=== PATIENT | female | born 1980 | race American Indian/Alaskan Native ===

== ENCOUNTER 2016-08-30 15:48 | Emergency (ER) | payer MEDICAID ==
[2016-08-30] MEDS ORDERED: TORADOL IM ONE (20:37)
--- NOTE | 2016-08-30 20:42 | Emergency Department Report ---
HPI - General Chief Complaint: Dental/Oral Time Seen by Provider: 08/30/16 20:20 - HPI HPI: 35-year-old female presents today with right lower toothache 1 week. Patient states that for the past he states she's also had right-sided facial pressure. Describes her pain as 6 out of 10 constant, throbbing pain. Positive for history of similar symptoms and cavities. She tried Tylenol Extra Strength with some relief. Denies fever, chills, nausea, vomiting, chest pain, shortness of breath, abdominal pain. ED Past Medical Hx - Past Medical History Previous Medical History?: No - Surgical History Additional Surgical History: - Social History Smoking Status: Never Smoker Substance Use Type: Alcohol - Medications Home Medications: Home Medications Medication Instructions Recorded Confirmed Last Taken Type Naproxen [Naprosyn] 500 mg PO BID #20 tablet 08/30/16 Unknown Rx Penicillin Vk [Veetids TAB] 500 mg PO QID #56 tablet 08/30/16 Unknown Rx ED Review of Systems ROS: Stated complaint: TOOTHACHE/FEVER Other details as noted in HPI Constitutional: denies: chills, fever, malaise Eyes: denies: eye pain ENT: dental pain. denies: ear pain, throat pain, congestion Respiratory: denies: cough, shortness of breath, wheezing Cardiovascular: denies: chest pain, palpitations Endocrine: no symptoms reported Gastrointestinal: denies: abdominal pain, nausea, vomiting Neurological: denies: headache, weakness Physical Exam - Physical Exam Vital Signs: Vital Signs 08/30/16 17:24 Temperature 98.4 F Pulse Rate 84 Respiratory 18 Rate Blood Pressure 157/98 O2 Sat by Pulse 98 Oximetry Physical Exam: GENERAL: The patient is well-developed and well-nourished. Patient is in NAD. HEAD: Normocephalic. Atraumatic. EYES: PERRL. EARS: External auditory canals and tympanic membranes clear; hearing grossly intact. NOSE: Normal nasal mucosa with no nasal discharge. THROAT: No erythema, swelling or exudates. DENTAL: Tenderness to palpation to #31 and 32. Positive for dental caries. No abscess noted. No drainage or bleeding noted. NECK: Supple, nontender, without lymphadenopathy. CHEST/LUNGS: Clear to auscultation throughout. HEART/CARDIOVASCULAR: Regular rate and rhythm. ABDOMEN: Abdomen is soft, nontender. No guarding or rebound tenderness. EXTREMITIES: Peripheral pulses intact. Capillary refill less than 2 seconds. NEURO: Alert and oriented x 3. Normal gait. ED Course Vital Signs 08/30/16 17:24 Temperature 98.4 F Pulse Rate 84 Respiratory 18 Rate Blood Pressure 157/98 O2 Sat by Pulse 98 Oximetry ED Medical Decision Making - Lab Data Vital Signs 08/30/16 17:24 Temperature 98.4 F Pulse Rate 84 Respiratory 18 Rate Blood Pressure 157/98 O2 Sat by Pulse 98 Oximetry - Medical Decision Making 35-year-old female presents today with right lower toothache 1 week. Patient will be given a referral for dentist. Patient is in no acute distress at this time. She will be discharged home and is encouraged to follow up with a primary care provider. She will be sent home on penicillin VK and naproxen and is encouraged to return to the emergency room for any worsening symptoms. Critical care attestation.: If time is entered above; I have spent that time in minutes in the direct care of this critically ill patient, excluding procedure time. ED Disposition Clinical Impression: Toothache Disposition: DISCHARGED TO HOME OR SELFCARE Is pt being admited?: No Does the pt Need Aspirin: No Condition: Stable Instructions: Dental Caries (ED), Toothache (ED) Additional Instructions: Follow-up with dentist. Return to the emergency department if symptoms worsen. Prescriptions: Naproxen [Naprosyn] 500 mg PO BID #20 tablet Penicillin Vk [Veetids TAB] 500 mg PO QID #56 tablet Referrals: PRIMARY CARE, [Primary Care Provider] - 3-5 Days [facility] [Outside] - 3-5 Days [facility] [Outside] - 3-5 Days Forms: Work/School Release Form(ED), Accompanied Note Time of Disposition: 20:41
[2016-08-30 20:49] VITALS: BP 160/88
== END 2016-08-30 20:55 | disposition home or self-care (01) ==
LOC: ED 15:48
DX: K08.89 Other specified disorders of teeth and supporting structures (principal)
CPT/HCPCS: 96372; 99282; J1885

== ENCOUNTER 2017-11-01 11:49 | Emergency (ER) | payer MEDICAID, OTHER ==
[2017-11-01] MEDS ORDERED: MOTRIN PO ONE (12:08)
--- NOTE | 2017-11-01 12:09 | Emergency Department Report ---
ED Lower Extremity HPI - General Chief Complaint: Extremity Injury, Lower Stated Complaint: L KNEE PAIN Time Seen by Provider: 11/01/17 12:07 Source: patient, EMS Mode of arrival: Wheelchair Limitations: No Limitations - History of Present Illness Initial Comments: This is a 37-year-old female nontoxic, well nourished in appearance, no acute signs of distress presents to the ED with c/o of left knee pain x1 day. Patient stated she was walking in the ran and tripped and landed on her left knee. Denies follow-up with a primary care doctor or orthopedic doctor. Patient denies any numbness, tingling, fever, chills, nausea, vomiting, headache or stiff neck. Patient denies new trauma. Patient denies any allergies. Denies PMH. MD Complaint: knee injury -: days(s) (1) Injury: Knee: Left Type of Injury: blunt Place: street/outdoors Severity: mild Severity scale (0 -10): 8 Improves With: immobilization Worsens With: movement, palpation Context: fall Associated Symptoms: able to partially bear weight, ambulatory. denies: snap/ pop sensation, swelling, numbness, tingling, unable to bear weight - Related Data Previous Rx's Medication Instructions Recorded Last Taken Type Naproxen [Naprosyn] 500 mg PO BID #20 tablet 08/30/16 Unknown Rx Penicillin Vk [Veetids TAB] 500 mg PO QID #56 tablet 08/30/16 Unknown Rx Ibuprofen [Motrin] 600 mg PO Q8H PRN #30 tablet 11/01/17 Unknown Rx Allergies Allergy/AdvReac Type Severity Reaction Status Date / Time No Known Allergies Allergy Verified 11/01/17 11:51 ED Review of Systems ROS: Stated complaint: L KNEE PAIN Other details as noted in HPI Constitutional: denies: chills, fever Eyes: denies: eye pain, eye discharge, vision change ENT: denies: ear pain, throat pain Respiratory: denies: cough, shortness of breath, wheezing Cardiovascular: denies: chest pain, palpitations Endocrine: no symptoms reported Gastrointestinal: denies: abdominal pain, nausea, diarrhea Genitourinary: denies: urgency, dysuria, discharge Musculoskeletal: arthralgia. denies: back pain, joint swelling Skin: denies: rash, lesions Neurological: denies: headache, weakness, paresthesias Psychiatric: denies: anxiety, depression Hematological/Lymphatic: denies: easy bleeding, easy bruising ED Past Medical Hx - Past Medical History Previous Medical History?: No - Surgical History Additional Surgical History: - Social History Smoking Status: Never Smoker Substance Use Type: Alcohol - Medications Home Medications: Home Medications Medication Instructions Recorded Confirmed Last Taken Type Naproxen [Naprosyn] 500 mg PO BID #20 tablet 08/30/16 Unknown Rx Penicillin Vk [Veetids TAB] 500 mg PO QID #56 tablet 08/30/16 Unknown Rx Ibuprofen [Motrin] 600 mg PO Q8H PRN #30 tablet 11/01/17 Unknown Rx ED Physical Exam - General Limitations: No Limitations General appearance: alert, in no apparent distress - Head Head exam: Present: atraumatic, normocephalic - Eye Eye exam: Present: normal appearance Pupils: Present: normal accommodation - ENT ENT exam: Present: normal exam, mucous membranes moist - Neck Neck exam: Present: normal inspection, full ROM. Absent: tenderness, meningismus, lymphadenopathy - Respiratory Respiratory exam: Present: normal lung sounds bilaterally. Absent: respiratory distress, wheezes, rales, rhonchi, stridor - Cardiovascular Cardiovascular Exam: Present: regular rate, normal rhythm, normal heart sounds. Absent: bradycardia, tachycardia, irregular rhythm, systolic murmur, diastolic murmur, rubs, gallop - GI/Abdominal GI/Abdominal exam: Present: soft, normal bowel sounds - Extremities Exam Extremities exam: Present: normal inspection, full ROM, tenderness, normal capillary refill. Absent: pedal edema, joint swelling, calf tenderness - Expanded Lower Extremity Exam Left Hip exam: Present: normal inspection, full ROM Upper Leg exam: Present: normal inspection, full ROM Knee exam: Present: normal inspection, full ROM, tenderness, full knee extension. Absent: swelling, abrasion, laceration, ecchymosis, deformity, crepidus, dislocation, erythema, effusion, pain w/ pronation/supination, posterior draw sign, pain/laxity with valgus, pain/laxity with varus Lower Leg exam: Present: normal inspection, full ROM Ankle exam: Present: normal inspection, full ROM Foot/Toe exam: Present: normal inspection, full ROM Neuro vascular tendon exam: Present: no vascular compromise. Absent: pulse deficit, abnormal cap refill, motor deficit, sensory deficit, tendon deficit, extremity cold to touch, pallor, abnormal 2-point discrimination, decreased fine /light touch, foot drop, peroneal nerve deficit, significant pain with passive ROM of distal joint Gait: Positive: observed and limited by pain - Back Exam Back exam: Present: normal inspection, full ROM - Neurological Exam Neurological exam: Present: alert, oriented X3, normal gait - Psychiatric Psychiatric exam: Present: normal affect, normal mood - Skin Skin exam: Present: warm, dry, intact, normal color. Absent: rash ED Course Vital Signs 11/01/17 11:51 Temperature 98.6 F Pulse Rate 75 Respiratory 18 Rate Blood Pressure 140/81 O2 Sat by Pulse 100 Oximetry - Reevaluation(s) Reevaluation #1: 11/01/17 13:26 Patient is speaking in full sentences with no signs of distress noted. ED Lower Extremity MDM - Medical Decision Making This is a 37-year-old female that of the left knee strain. Patient is stable and was examined by me. X-ray has been obtained and dictated by the radiologist. Patient is notified of the x-ray report with no rashes noted by the patient. Patient motrin in the ED which patient stated that that his symptoms are improving and subsided. Patient was instructed to RICE therapy. Patient received a knee immobilizer and crutches and was educated by RN how to use crutches. There is no joint swelling or redness. Normal ROM with slight pain discomfort noterd. Patient was referred to Follow-up with a orthopedic doctor in 3-5 days or if symptoms worsen and continue return to emergency room as soon as possible. At time of discharge, the patient does not seem toxic or ill in appearance. No acute signs of distress noted. Patient agrees to discharge treatment plan of care. No further questions noted by the patient. Critical care attestation.: If time is entered above; I have spent that time in minutes in the direct care of this critically ill patient, excluding procedure time. ED Disposition Clinical Impression: Strain of left knee Qualifiers: Encounter type: initial encounter Qualified Code(s): S86.912A - Strain of unspecified muscle(s) and tendon(s) at lower leg level, left leg, initial encounter Disposition: - TO HOME OR SELFCARE Is pt being admited?: No Does the pt Need Aspirin: No Condition: Stable Instructions: Knee Pain (ED), Knee Immobilizer (ED), Ibuprofen (By mouth), RICE Therapy (ED), Crutch Instructions (ED) Additional Instructions: Follow-up with a orthopedic doctor in 3-5 days or if symptoms worsen and continue return to emergency room as soon as possible. Prescriptions: Ibuprofen [Motrin] 600 mg PO Q8H PRN #30 tablet PRN Reason: Pain Referrals: PRIMARY CARE, [Primary Care Provider] - 3-5 Days MARY OBREGON MD [Staff Physician] - 3-5 Days TERESITA RAMIREZ MD [Staff Physician] - 3-5 Days [facility] [Outside] - 3-[address] [facility] [Outside] - 3-5 Days Forms: Work/School Release Form(ED)
--- NOTE | 2017-11-01 13:57 | XRay Report ---
LEFT KNEE, 4 views: History: Fall with left knee pain The bony architecture is intact without evidence of fracture or dislocation. Mild osteoarthritic changes are identified in all 3 compartments. No significant soft tissue abnormality is seen. IMPRESSION: Mild osteoarthritis. No acute injury identified.
[2017-11-01 14:54] VITALS: BP 136/78
== END 2017-11-01 14:54 | disposition home or self-care (01) ==
LOC: ED 11:49
DX: S86.912A Strain of unspecified muscle(s) and tendon(s) at lower leg level, left leg, initial encounter (principal); W01.0XXA Fall on same level from slipping, tripping and stumbling without subsequent striking against object, initial encounter; Y93.89 Activity, other specified; Y92.89 Other specified places as the place of occurrence of the external cause; Y99.8 Other external cause status

== ENCOUNTER 2020-09-08 08:43 | Emergency (ER) | payer MEDICAID ==
--- NOTE | 2020-09-08 09:09 | Event Note ---
ED Screening Note Date of service: 09/08/20 Time: 08:55 ED Screening Note: 39-year-old obese -[place] female presents to the emergency room complaining of nausea vomiting feeling depressed and overwhelmed insomnia decreased appetite. Reported she had some suicidal ideation in the last couple months but none in the last 2 days. She states she has 2 boys at home that are being homeschooled. Last menstrual period was 07/11/2020. Reports that she is having issues with her relationship. This initial assessment/diagnostic orders/clinical plan/treatment(s) is/are subject to change based on patients health status, clinical progression and re- assessment by fellow clinical providers in the ED. Further treatment and workup at subsequent clinical providers discretion. Patient/guardian urged not to elope from the ED as their condition may be serious if not clinically assessed and managed. Initial orders include:
[2020-09-08] MEDS ORDERED: ONDANSETRON 4 MG ODT TAB PO ONE (09:14)
[2020-09-08 09:42] LABS: Basophils % (Auto) 0.6 % (0.0-1.8); Eosinophils # (Auto) 0.1 K/mm3 (0.0-0.4); Eosinophils % (Auto) 0.7 % (0.0-4.3); Lymphocytes % (Auto) 27.5 % (13.4-35.0); Mean Corpuscular HGB Conc 36 % (30-34); Mean Corpuscular Volume 85 fl (79-97); Monocytes # (Auto) 0.4 K/mm3 (0.0-0.8); Monocytes % (Auto) 4.9 % (0.0-7.3); Platelet Count 217 K/mm3 (140-440); Red Blood Count 4.56 M/mm3 (3.65-5.03); Red Cell Distribution Width 13.9 % (13.2-15.2)
--- NOTE | 2020-09-08 09:59 | Emergency Department Report ---
ED General Adult HPI - General Chief complaint: Medical Clearance Stated complaint: VOMITING/NOT BE TO KEEP DOWN FOOD Time Seen by Provider: 09/08/20 09:49 Source: patient Mode of arrival: Ambulatory Limitations: No Limitations - History of Present Illness Initial comments: Patient is 39 years old female with no significant past medical history. Manuel wood presented to the emergency room complaining of diffuse abdominal pain, nausea and vomiting. Patient also stated that she is having issues with depression as she has been going through a lot of relationship problem however she denied any suicidal ideation. No homicidal ideation, auditory hallucination or visual hallucination. Patient denied any fever or chills. No chest pain or shortness of breath. - Related Data Previous Rx's Medication Instructions Recorded Last Taken Type Naproxen [Naprosyn] 500 mg PO BID #20 tablet 08/30/16 Unknown Rx Penicillin Vk [Veetids TAB] 500 mg PO QID #56 tablet 08/30/16 Unknown Rx Ibuprofen [Motrin] 600 mg PO Q8H PRN #30 tablet 11/01/17 Unknown Rx Sertraline [Zoloft] 25 mg PO QDAY #30 tab 09/08/20 Unknown Rx hydrOXYzine PAMOATE [Vistaril] 25 mg PO BID PRN #60 capsule 09/08/20 Unknown Rx traZODone [Desyrel] 50 mg PO QHS #30 tab 09/08/20 Unknown Rx Allergies Allergy/AdvReac Type Severity Reaction Status Date / Time No Known Allergies Allergy Verified 11/01/17 11:51 ED Review of Systems ROS: Stated complaint: VOMITING/NOT BE TO KEEP DOWN FOOD Other details as noted in HPI Comment: All other systems reviewed and negative Constitutional: denies: chills, fever Respiratory: denies: cough, shortness of breath, SOB with exertion Gastrointestinal: abdominal pain, nausea, vomiting. denies: diarrhea, constipation, hematemesis, melena, hematochezia Musculoskeletal: denies: back pain Neurological: denies: headache, weakness, numbness, paresthesias, confusion ED Past Medical Hx - Past Medical History Previous Medical History?: No - Surgical History Past Surgical History?: Yes Additional Surgical History: - Social History Smoking Status: Never Smoker Substance Use Type: None - Medications Home Medications: Home Medications Medication Instructions Recorded Confirmed Last Taken Type Naproxen [Naprosyn] 500 mg PO BID #20 tablet 08/30/16 Unknown Rx Penicillin Vk [Veetids TAB] 500 mg PO QID #56 tablet 08/30/16 Unknown Rx Ibuprofen [Motrin] 600 mg PO Q8H PRN #30 tablet 11/01/17 Unknown Rx Sertraline [Zoloft] 25 mg PO QDAY #30 tab 09/08/20 Unknown Rx hydrOXYzine PAMOATE [Vistaril] 25 mg PO BID PRN #60 capsule 09/08/20 Unknown Rx traZODone [Desyrel] 50 mg PO QHS #30 tab 09/08/20 Unknown Rx ED Physical Exam - General Limitations: No Limitations General appearance: alert, in no apparent distress - Head Head exam: Present: atraumatic, normocephalic, normal inspection - Eye Eye exam: Present: normal appearance - ENT ENT exam: Present: normal exam, normal orophraynx, mucous membranes moist - Neck Neck exam: Present: normal inspection, full ROM. Absent: tenderness, meningismus - Respiratory Respiratory exam: Present: normal lung sounds bilaterally - Cardiovascular Cardiovascular Exam: Present: regular rate, normal rhythm, normal heart sounds - GI/Abdominal GI/Abdominal exam: Present: soft, normal bowel sounds. Absent: distended, tenderness, guarding, rebound, rigid, organomegaly, mass, bruit, pulsatile mass, hernia - Extremities Exam Extremities exam: Present: normal inspection, full ROM, normal capillary refill. Absent: tenderness - Back Exam Back exam: Present: normal inspection, full ROM. Absent: CVA tenderness (R), CVA tenderness (L) - Neurological Exam Neurological exam: Present: alert, oriented X3, CN II-XII intact - Psychiatric Psychiatric exam: Present: normal mood. Absent: depressed, anxious, flat affect, manic, homicidal ideation, suicidal ideation - Skin Skin exam: Present: warm, intact, normal color ED Course Vital Signs 09/08/20 09/08/20 09:13 09:57 Temperature 99.0 F Pulse Rate 76 Respiratory 20 16 Rate Blood Pressure 127/77 [127/77] O2 Sat by Pulse 99 98 Oximetry ED Medical Decision Making - Lab Data Result diagrams: 09/08/20 09:25 09/08/20 09:25 - Medical Decision Making Patient is 39 years old female with no significant past medical history. Patient presented to the emergency room complaining of diffuse abdominal pain, nausea and vomiting. Patient also stated that she is having issues with depression as she has been going through a lot of relationship problem however she denied any suicidal ideation. No homicidal ideation, auditory hallucination or visual hallucination. Patient denied any fever or chills. No chest pain or shortness of breath. Patient received Zofran 4 mg. Labs reviewed and is unremarkable. Patient has been evaluated by our psychiatric team and recommended outpatient treatment. Patient advised to return to the ER if she develop any new symptoms. Critical care attestation.: If time is entered above; I have spent that time in minutes in the direct care of this critically ill patient, excluding procedure time. ED Disposition Clinical Impression: Acute abdominal pain, Acute nausea with nonbilious vomiting, Depression Disposition: - TO HOME OR SELFCARE Is pt being admited?: No Condition: Stable Instructions: Nausea and Vomiting, Adult, Abdominal Pain, Adult, [id number], Major Depressive Disorder, Adult, [id number] Prescriptions: traZODone [Desyrel] 50 mg PO QHS #30 tab hydrOXYzine PAMOATE [Vistaril] 25 mg PO BID PRN #60 capsule PRN Reason: Anxiety Sertraline [Zoloft] 25 mg PO QDAY #30 tab Referrals: JOY GUERRERO CNM [Primary Care Provider] - 3-5 Days
[2020-09-08 10:01] LABS: Mucus,Urine 1+ /HPF
[2020-09-08 10:05] LABS: Alanine Aminotransferase 13 units/L (7-56); BUN/Creatinine Ratio 9; Blood Urea Nitrogen 8 mg/dL (7-17); Calcium 8.8 mg/dL (8.4-10.2); Hemolysis Index 1
[2020-09-08 10:17] LABS: Bilirubin,Urine NEG (Negative); Blood,Urine NEG (Negative)
--- NOTE | 2020-09-08 11:03 | Consultation ---
History of Present Illness - Reason for Consult Consult date: 09/08/20 Reason for consult: anxiety, depression - History of Present Psychiatric Illness Per ED note: "Patient is 39 years old female with no significant past medical history. Patient presented to the emergency room complaining of diffuse abdominal pain, nausea and vomiting. Patient also stated that she is having issues with depression as she has been going through a lot of relationship p naeem however she denied any suicidal ideation. No homicidal ideation, auditory hallucination or visual hallucination. Patient denied any fever or chills. No chest pain or shortness of breath." During my interview with 39y/o Dale Sanabria, she is lying down. She verbalizes depression, anxiety and not sleeping. The patient says she "thought she had a boyfriend, but I guess not." She is tearful. She denies having a psych history but states she needs someone to talk to. She denies SI/HI or hallucinations of any kind. She says she's had a lot going on in her life. She says her sister last year. The patient says "I just feel so anxious all the time." An appointment was made for the patient with [facility]. 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 Access to guns/weapons: None reported Education: high school History of Abuse: None reported Legal History: denies REVIEW OF SYSTEMS Constitutional: Negative for weight loss ENT: Negative for stridor Respiratory: Negative for cough or hemoptysis All other systems reviewed and are negative MENTAL STATUS EXAMINATION General Appearance and Behavior: Age appropriate, good hygiene, wearing appropriate clothes, good eye contact, calm and cooperative Cooperation: Participating/engaged Psychomotor Behavior: Psychomotor normal Mood: anxious, depressed Affect and affective range: congruent with stated mood, tearful Thought Process: logical Thought Content: None Speech: Normal rate, volume and rhythm Suicidal Ideation: Denies Homicidal Ideation: Denies Hallucinations: Denies Delusions: None elicited Impulse Control: Normal Insight and Judgment: Normal insight and judgment Memory: Normal Attention:Normal Orientation: Alert, oriented Assessment and Plan (1) Major Depressive Disorder (2) Generalized Anxiety Disorder TREATMENT Zoloft 25mg po daily Trazodone 50mg po qhs Vistaril 25mg po BID prn anxiety, first dose prior to discharge Continue previously prescribed medications Risks, benefits and alternatives of medications discussed with the patient, questions answered and consent obtained from patient. PSYCHOTHERAPY: Supportive psychotherapy provided MEDICAL: Per primary team DELIRIUM PRECAUTIONS: Please re-orient patient frequently, keep lights on during the day, and minimize benzodiazepines and opiates as these medications could worsen patient's confusion. 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 Case discussed with Dr. Huerta and agrees with dispostion. FOLLOW-UP: Will sign off Thank you for the consult. Please contact with any questions and/or concerns. Medications and Allergies Allergies Allergy/AdvReac Type Severity Reaction Status Date / Time No Known Allergies Allergy Verified 11/01/17 11:51 Home Medications Medication Instructions Recorded Confirmed Last Taken Type Naproxen [Naprosyn] 500 mg PO BID #20 tablet 08/30/16 Unknown Rx Penicillin Vk [Veetids TAB] 500 mg PO QID #56 tablet 08/30/16 Unknown Rx Ibuprofen [Motrin] 600 mg PO Q8H PRN #30 tablet 11/01/17 Unknown Rx Sertraline [Zoloft] 25 mg PO QDAY #30 tab 09/08/20 Unknown Rx hydrOXYzine PAMOATE [Vistaril] 25 mg PO BID PRN #60 capsule 09/08/20 Unknown Rx traZODone [Desyrel] 50 mg PO QHS #30 tab 09/08/20 Unknown Rx Mental Status Exam - Vital signs Last Vital Signs Temp 99.0 F 09/08/20 09:13 Pulse 76 09/08/20 09:13 Resp 16 09/08/20 09:57 BP 127/77 09/08/20 09:13 Pulse Ox 98 09/08/20 09:57 Results Result Diagrams: 09/08/20 09:25 09/08/20 09:25 Abnormal lab results 09/08/20 09/08/20 09/08/20 Range/Units 09:25 09:25 09:25 MCHC 36 H (30-34) % Sodium 135 L (137-145) mmol/L Glucose 113 H (65-100) mg/dL Urine WBC (Auto) 7.0 H (0.0-6.0) /HPF U Epithel Cells (Auto) 17.0 H (0-13.0) /HPF All other labs normal.
[2020-09-08] MEDS ORDERED: hydrOXYzine PAMOATE 25 MG CAP PO ONE (11:11)
[2020-09-08 12:14] VITALS: BP 112/62
[2020-09-09 21:15] LABS: Color,Urine Yellow (Yellow); Protein,Urine <15 mg/dL mg/dL (Negative); Urobilinogen,Urine < 2.0 mg/dL (<2.0)
== END 2020-09-08 12:13 | disposition home or self-care (01) ==
LOC: ED 08:43
DX: R10.84 Generalized abdominal pain (principal); R11.2 Nausea with vomiting, unspecified; F32.9 Major depressive disorder, single episode, unspecified; Z79.899 Other long term (current) drug therapy
CPT/HCPCS: 36415; 80053; 81001; 84702; 85025; 99284; Q0177; Q0162